=== PATIENT | female | born 1990 | race Two or more races ===

== ENCOUNTER 2016-08-02 13:31 | Emergency (ER) | payer SELFPAY ==
[~2016-08-02] VITALS: Ht 160 cm; Wt 93.0 kg
[~2016-08-02 13:31] MED LIST: CIPR500T94 PO; METR500T PO; PHEN-318 PO; PREN1TAB99 PO
--- NOTE | 2016-08-02 14:18 | EKG ---
[facility] [address] [place] [address] Test Date: 2016-08-02 Test Time: 13:37:51 Pat Name: RIZWANA BERG Department: Room: Gender: F Clinical Pharmacy Technician: : 1990 Requested By: HETAL FRASER Order Number: [id number] Reading MD: Biju Arguello Measurements Intervals [place] Rate: 74 P: 27 MS: 118 QRS: 42 QRSD: 88 T: 14 QT: 372 QTc: 418 Interpretive Statements SINUS RHYTHM Electronically Signed On 08-04-2016 10:35:18 INSTRUCTOR BRIDGE by Biju Arguello
[2016-08-02 14:24] LABS: BASO % 1 % (0-3); EOS % 3 % (0-3); HEMATOCRIT 38.4 % (36.0-47.0); HEMOGLOBIN 12.8 g/dL (12.0-15.5); LYMPH # 2.7 x10^3/uL (1.0-4.8); LYMPH % 36 % (24-48); MEAN CORPUSCULAR HEMOGLOBIN 30 pg (25-35); MEAN CORPUSCULAR HGB CONC 33 g/dL (31-37); MEAN CORPUSCULAR VOLUME 89 fL (79-100); MONO % 8 % (0-9); NEUT % 53 % (31-73); PLATELET COUNT 216 x10^3/uL (140-400); RED BLOOD COUNT 4.34 x10^6/uL (3.50-5.40); RED CELL DISTRIBUTION WIDTH 12.4 % (11.5-14.5); WHITE BLOOD COUNT 7.4 x10^3/uL (4.0-11.0)
[2016-08-02] MEDS ORDERED: ASPIRIN 81 MG TAB.CHEW PO ONE (14:30)
[2016-08-02] MEDS ORDERED: LORAZEPAM 2 MG/ML VIAL IV ONE (14:30)
[2016-08-02] MEDS ORDERED: IV NORMAL SALINE 1000ML BAG 1,000 ML IV SCH (14:30)
[2016-08-02 14:49] LABS: CALCIUM 8.5 mg/dL (8.5-10.1); CREATININE 0.6 mg/dL (0.6-1.0); GFR 119.9; POTASSIUM 3.8 mmol/L (3.5-5.1)
[2016-08-02 14:54] LABS: ALBUMIN 3.5 g/dL (3.4-5.0); DIRECT BILIRUBIN 0.1 mg/dL (0.0-0.2); MAGNESIUM 2.1 mg/dL (1.8-2.4); TOTAL BILIRUBIN 0.2 mg/dL (0.2-1.0); TOTAL PROTEIN 7.1 g/dL (6.4-8.2)
--- NOTE | 2016-08-02 14:55 | PHYS DOC ---
Past Medical History Past Medical History: Other Additional Past Medical Histor: Obesity, currently taking weight loss medication Past Surgical History: No Surgical History Alcohol Use: None Drug Use: None Adult General Chief Complaint Chief Complaint: CHEST PAIN HPI HPI Patient is a 26 year old female who presents with complaint of chest pain. Patient states that her symptoms started 5 days ago. The patient has had constant symptoms during that time. Patient states that the pain is along left side of her chest. Patient also states that she has had left arm numbness but denies weakness. Patient denies any significant past medical history and is currently not on any prescription medications. Patient does admit that she has been taking phentermine for weight loss over the past 2 months. Patient denies any palpitations or nausea. Patient has been taking ibuprofen which helps improve the pain. Patient currently rates her pain as 9 out of 10. Review of Systems Review of Systems Constitutional: Denies fever or chills [] Eyes: Denies change in visual acuity, redness, or eye pain [] HENT: Denies nasal congestion or sore throat [] Respiratory: Denies cough or shortness of breath [] Cardiovascular: Chest pain [] GI: Denies abdominal pain, nausea, vomiting, bloody stools or diarrhea [] : Denies dysuria or hematuria [] Musculoskeletal: Denies back pain or joint pain [] Integument: Denies rash or skin lesions [] Neurologic: Left arm numbness, Denies headache or focal weakness [] Endocrine: Denies polyuria or polydipsia [] Current Medications Current Medications Current Medications Medications (Trade) Dose Ordered Sig/[facility] Start Time Stop Time Status Last Admin Dose Admin Aspirin 324 mg 324 mg 1X ONCE 08/02/16 14:30 08/02/16 14:31 DC 08/02/16 14:45 324 MG Lorazepam (Ativan) 1 mg 1X ONCE 08/02/16 14:30 08/02/16 14:31 DC 08/02/16 14:45 1 MG Sodium Chloride (Iv Sodium Chloride 0.9% 1000ml Bag) 1,000 ml @ 1,000 mls/hr Q1H 08/02/16 14:30 08/02/16 15:29 08/02/16 14:45 1,000 MLS/HR Allergies Allergies Allergies Coded Allergies Type Severity Reaction Last Updated Verified No Known Drug Allergies 08/22/13 No Physical Exam Physical Exam Constitutional: Well developed, well nourished, no acute distress, non-toxic appearance. [] HENT: Normocephalic, atraumatic, bilateral external ears normal, oropharynx moist, no oral exudates, nose normal. [] Eyes: PERRLA, EOMI, conjunctiva normal, no discharge. [] Neck: Normal range of motion, no tenderness, supple, no stridor. [] Cardiovascular:Heart rate regular rhythm, no murmur [] Lungs & Thorax: Bilateral breath sounds clear to auscultation [] Abdomen: Bowel sounds normal, soft, no tenderness, no masses, no pulsatile masses. [] Skin: Warm, dry, no erythema, no rash. [] Back: No tenderness, no CVA tenderness. [] Extremities: No tenderness, no cyanosis, no clubbing, ROM intact, no edema. [] Neurologic: Alert and oriented X 3, normal motor function, normal sensory function, no focal deficits noted. [] Current Patient Data Vital Signs Vital Signs Date Time Temp Pulse Resp B/P Pulse Ox O2 Delivery O2 Flow Rate FiO2 08/02/16 13:35 98.2 77 18 130/71 100 Room Air 98.2 Lab Values Laboratory Tests Test 08/02/16 14:06 White Blood Count 7.4x10^3/uL (4.0-11.0) Red Blood Count 4.34x10^6/uL (3.50-5.40) Hemoglobin 12.8g/dL (12.0-15.5) Hematocrit 38.4% (36.0-47.0) Mean Corpuscular Volume 89fL (79-100) Mean Corpuscular Hemoglobin 30pg (25-35) Mean Corpuscular Hemoglobin Concent 33g/dL (31-37) Red Cell Distribution Width 12.4% (11.5-14.5) Platelet Count 216x10^3/uL (140-400) Neutrophils (%) (Auto) 53% (31-73) Lymphocytes (%) (Auto) 36% (24-48) Monocytes (%) (Auto) 8% (0-9) Eosinophils (%) (Auto) 3% (0-3) Basophils (%) (Auto) 1% (0-3) Neutrophils # (Auto) 4.0x10^3uL (1.8-7.7) Lymphocytes # (Auto) 2.7x10^3/uL (1.0-4.8) Monocytes # (Auto) 0.6x10^3/uL (0.0-1.1) Eosinophils # (Auto) 0.2x10^3/uL (0.0-0.7) Basophils # (Auto) 0.0x10^3/uL (0.0-0.2) D-Dimer ([place]) < 0.27ug/mlFEU (0.00-0.50) Sodium Level 144mmol/L (136-145) Potassium Level 3.8mmol/L (3.5-5.1) Chloride Level 109mmol/L (98-107) H Carbon Dioxide Level 28mmol/L (21-32) Anion Gap 7 (6-14) Blood Urea Nitrogen 9mg/dL (7-20) Creatinine 0.6mg/dL (0.6-1.0) Estimated GFR (Cockcroft-Gault) 119.9 Glucose Level 106mg/dL (70-99) H Calcium Level 8.5mg/dL (8.5-10.1) Magnesium Level 2.1mg/dL (1.8-2.4) Total Bilirubin 0.2mg/dL (0.2-1.0) Direct Bilirubin 0.1mg/dL (0.0-0.2) Aspartate Amino Transferase (AST) 12U/L (15-37) L Alanine Aminotransferase (ALT) 21U/L (14-59) Alkaline Phosphatase 70U/L (46-116) Creatine Kinase 63U/L (26-192) Creatine Kinase MB (Mass) < 0.5ng/mL (0.0-3.6) Creatine Kinase MB Relative Index 0.8% (0-4) Troponin I Quantitative < 0.017ng/mL (0.000-0.055) VA-Vbw-A-Type Natriuretic Peptide 87pg/mL (0-124) Total Protein 7.1g/dL (6.4-8.2) Albumin 3.5g/dL (3.4-5.0) Laboratory Tests 08/02/16 14:06 Laboratory Tests 08/02/16 14:06 EKG EKG Interpreted by me: Heart rate 74, sinus rhythm, normal intervals, normal axis, no acute ST/T-wave abnormalities present [] Radiology/Procedures Radiology/Procedures [facility] [address] [place] [address] IMAGING REPORT Signed PATIENT: RIZWANA BERG ACCOUNT: [id number] : 1990 LOCATION: ER AGE: 26 SEX: F EXAM STATUS: REG ER ORD. PHYSICIAN: HETAL FRASER MD REASON: chest pain PROCEDURE: CHEST PA & LATERAL EXAM: Chest, 2 views. HISTORY: Chest pain. COMPARISON: None. FINDINGS: Frontal and lateral views of the chest are obtained. There is no infiltrate, effusion or pneumothorax. The heart is normal in size. IMPRESSION: No acute pulmonary finding. DICTATED and SIGNED BY: ALDAIR MOON MD DATE: 08/02/16 1458 CC: HETAL FRASER MD; NO PCP ~ [] Course & Med Decision Making Course & Med Decision Making Pertinent Labs and Imaging studies reviewed. (See chart for details) [] Dragon Disclaimer Dragon Disclaimer This electronic medical record was generated, in whole or in part, using a voice recognition dictation system. Departure Departure Impression: Primary Impression: Chest pain Disposition: 01 HOME, SELF-CARE Condition: IMPROVED Referrals: NO PCP (PCP) Patient Instructions: Chest Pain (Nonspecific) Additional Instructions: Follow-up with your primary doctor in the next 3 days. Return to emergency department for any worsening symptoms. Scripts Ibuprofen 600 Mg [id number] Mg PO PRN Q6HRS PRN INFLAMMATION #30 TAB Prov:HETAL FRASER MD 08/02/16 Problem Qualifiers Primary Impression: Chest pain Chest pain type: unspecified Qualified Code: R07.9 - Chest pain, unspecified HETAL FRASER MD Aug 02, 2016 14:55
[2016-08-02 14:57] LABS: CREATINE KINASE 63 U/L (26-192)
[2016-08-02 14:58] LABS: CKMB INDEX 0.8 % (0-4); CKMB MASS < 0.5 ng/mL (0.0-3.6)
--- NOTE | 2016-08-02 15:00 | RAD ---
EXAM: Chest, 2 views. HISTORY: Chest pain. COMPARISON: None. FINDINGS: Frontal and lateral views of the chest are obtained. There is no infiltrate, effusion or pneumothorax. The heart is normal in size. IMPRESSION: No acute pulmonary finding.
[2016-08-02 15:08] VITALS: BP 113/65
[2016-08-02] MEDS ORDERED: IBUP-1007 PO (15:09)
[2016-08-02 15:14] LABS: NEG OBC UR NEG; POS OBC UR POS
[2016-08-02 15:19] LABS: BILIRUBIN,URINE NEGATIVE (NEG); GLUCOSE,URINE NEGATIVE (NEG); NITRITE,URINE NEGATIVE (NEG); PROTEIN,URINE NEGATIVE (NEG-TRACE)
[2016-08-02 15:20] LABS: BACTERIA,URINE FEW /HPF (0-FEW); RBC,URINE OCC /HPF (0-2); SQUAMOUS EPITHELIAL CELL,UR MOD /LPF
[2016-08-02 15:22] LABS: BARBITURATES NEG (NEG); BENZODIAZEPINES NEG (NEG); CANNABINOIDS NEG (NEG); COCAINE NEG (NEG); METHADONE NEG (NEG); OPIATES NEG (NEG); PHENCYCLIDINE NEG (NEG)
[2016-08-02 15:23] LABS: ETHANOL, URINE NEG (NEG)
== END 2016-08-02 15:40 | disposition home or self-care (01) ==
LOC: ER 13:31
DX: R07.89 Other chest pain (principal); E66.9 Obesity, unspecified; Z68.36 Body mass index [BMI] 36.0-36.9, adult
CPT/HCPCS: 36415; 71020; 80048; 80076; 81001; 81025; 82553; 83735; 83880; 84484; 85027; 85379; 87086; 93005; 96361; 96374; 99285; G0481; J2060; J7030

== ENCOUNTER 2017-06-28 21:29 | Emergency (ER) | payer SELFPAY ==
[2017-06-28 21:56] LABS: BASO # 0.1 x10^3/uL (0.0-0.2); BASO % 0 % (0-3); EOS % 1 % (0-3); HEMATOCRIT 41.3 % (36.0-47.0); HEMOGLOBIN 13.8 g/dL (12.0-15.5); LYMPH # 3.6 x10^3/uL (1.0-4.8); LYMPH % 21 % (24-48); MEAN CORPUSCULAR HEMOGLOBIN 30 pg (25-35); MEAN CORPUSCULAR HGB CONC 33 g/dL (31-37); MEAN CORPUSCULAR VOLUME 89 fL (79-100); MONO % 6 % (0-9); NEUT % 72 % (31-73); PLATELET COUNT 261 x10^3/uL (140-400); RED BLOOD COUNT 4.67 x10^6/uL (3.50-5.40); RED CELL DISTRIBUTION WIDTH 12.9 % (11.5-14.5); WHITE BLOOD COUNT 17.5 x10^3/uL (4.0-11.0)
[2017-06-28 21:57] LABS: ADD MAN DIFF? YES
[2017-06-28 22:06] LABS: ANION GAP 9 (6-14); BLOOD UREA NITROGEN 17 mg/dL (7-20); BUN/CREATININE RATIO 21 (6-20); CALCIUM 8.6 mg/dL (8.5-10.1); CARBON DIOXIDE 28 mmol/L (21-32); CHLORIDE 104 mmol/L (98-107); CREATININE 0.8 mg/dL (0.6-1.0); GFR 85.4; GLUCOSE 95 mg/dL (70-99); POTASSIUM 3.7 mmol/L (3.5-5.1); SODIUM 141 mmol/L (136-145)
[2017-06-28 22:12] LABS: ALBUMIN 3.9 g/dL (3.4-5.0); ALK PHOS 85 U/L (46-116); ALT (SGPT) 26 U/L (14-59); AST (SGOT) 15 U/L (15-37); TOTAL BILIRUBIN 0.4 mg/dL (0.2-1.0); TOTAL PROTEIN 7.8 g/dL (6.4-8.2)
[2017-06-28 22:13] LABS: TROPONINI < 0.017 ng/mL (0.000-0.055)
[2017-06-28 22:22] LABS: CKMB MASS < 0.5 ng/mL (0.0-3.6); CREATINE KINASE 47 U/L (26-192)
[2017-06-28 22:22] LABS: NT-PRO BNP 24 pg/mL (0-124)
[2017-06-28 22:24] LABS: % EOS 3 % (0-5)
[2017-06-28 22:25] LABS: PLT ESTIMATE ADEQUATE (ADEQUATE)
[2017-06-28] MEDS: KETOROLAC 30 MG/ML INJ. IV (22:28)
[2017-06-28] MEDS: IV NORMAL SALINE 1000ML BAG 1,000 ML IV (22:29)
[2017-06-28 22:43] LABS: URINE HCG POC HCG NEGATIVE (Negative)
[2017-06-28 22:44] LABS: BILIRUBIN,URINE NEGATIVE (NEG); GLUCOSE,URINE NEGATIVE (NEG); NITRITE,URINE NEGATIVE (NEG); PROTEIN,URINE NEGATIVE (NEG-TRACE)
[2017-06-28 22:49] LABS: BACTERIA,URINE MANY /HPF (0-FEW); RBC,URINE OCC /HPF (0-2); SQUAMOUS EPITHELIAL CELL,UR MANY /LPF; WBC,URINE 20-40 /HPF (0-4)
== END 2017-06-28 23:19 | disposition home or self-care (01) ==
LOC: ER 21:29
DX: J18.9 Pneumonia, unspecified organism (principal); R09.1 Pleurisy; E66.9 Obesity, unspecified; Z68.36 Body mass index [BMI] 36.0-36.9, adult
CPT/HCPCS: 36415; 71020; 80053; 81001; 81025; 82553; 83735; 83880; 84484; 85007; 85025; 85379; 87086; 93005; 96361; 96374; 99285-25; J1885; J7030

== ENCOUNTER 2018-07-29 09:19 | Emergency (ER) | payer SELFPAY ==
[~2018-07-29] VITALS: Ht 157.5 cm; Wt 93.0 kg
[~2018-07-29 09:19] MED LIST changes: +AZIT250T6 PO; +IBUP-1007 PO
[2018-07-29 09:42] VITALS: BP 141/77
[2018-07-29 09:48] LABS: BILIRUBIN,URINE NEGATIVE (NEG); CLARITY,URINE CLEAR; COLOR,URINE ORANGE; NITRITE,URINE POSITIVE (NEG); PH,URINE 6.5; PROTEIN,URINE NEGATIVE (NEG-TRACE)
[2018-07-29 10:02] LABS: RBC,URINE OCC /HPF (0-2); SQUAMOUS EPITHELIAL CELL,UR MANY /LPF
[2018-07-29 10:04] LABS: BACTERIA,URINE MANY /HPF (0-FEW)
--- NOTE | 2018-07-29 10:23 | PHYS DOC ---
Past Medical History Past Medical History: No Pertinent History, Other Additional Past Medical Histor: Obesity, currently taking weight loss medication (JACOB AMYORGA APRN) Past Surgical History: No Surgical History (JACOB MAYORGA APRN) Alcohol Use: None Drug Use: None (JACOB MAYORGA APRN) Adult General Chief Complaint Chief Complaint: PAIN ON URINATION [facility] HPI Patient is a 28 year old female who presents complaining of urgency frequency and dysuria for 2 weeks. Patient denies any fever nausea vomiting or flank pain. (JACOB MAYORGA APRN) Review of Systems Review of Systems Constitutional: Denies fever or chills [] Eyes: Denies change in visual acuity, redness, or eye pain [] HENT: Denies nasal congestion or sore throat [] Respiratory: Denies cough or shortness of breath [] Cardiovascular: No additional information not addressed in HPI [] GI: Denies abdominal pain, nausea, vomiting, bloody stools or diarrhea [] : Reports urgency, frequency, dysuria, denies hematuria [] Musculoskeletal: Denies back pain or joint pain [] Integument: Denies rash or skin lesions [] Neurologic: Denies headache, focal weakness or sensory changes [] All other systems were reviewed and found to be within normal limits, except as documented in this note. (JACOB MAYORGA APRN) Allergies Allergies Allergies Coded Allergies Type Severity Reaction Last Updated Verified No Known Drug Allergies 08/22/13 No (MOE RAINES MD) Physical Exam Physical Exam Constitutional: Well developed, well nourished, no acute distress, non-toxic appearance. [] HENT: Normocephalic, atraumatic, bilateral external ears normal, oropharynx moist, no oral exudates, nose normal. [] Eyes: PERRLA, EOMI, conjunctiva normal, no discharge. [] Neck: Normal range of motion, no tenderness, supple, no stridor. [] Cardiovascular:Heart rate regular rhythm, no murmur [] Lungs & Thorax: Bilateral breath sounds clear to auscultation [] Abdomen: Bowel sounds normal, soft, no tenderness, no masses, no pulsatile masses. [] Skin: Warm, dry, no erythema, no rash. [] Back: No tenderness, no CVA tenderness. [] Extremities: No tenderness, no cyanosis, no clubbing, ROM intact, no edema. [] Neurologic: Alert and oriented X 3, normal motor function, normal sensory function, no focal deficits noted. [] Psychologic: Affect normal, judgement normal, mood normal. [] (JACOB MAYORGA APRN) Current Patient Data Vital Signs Vital Signs Date Time Temp Pulse Resp B/P (MAP) Pulse Ox O2 Delivery O2 Flow Rate FiO2 07/29/18 09:42 98.4 79 18 141/77 (98) 99 Room Air 98.4 (MOE RAINES MD) Lab Values Laboratory Tests Test 07/29/18 09:27 Urine Collection Type Unknown Urine Color Saline Urine Clarity Clear Urine pH 6.5 Urine Specific [place] 1.025 Urine Protein Negative mg/dL (NEG-TRACE) Urine Glucose (UA) Negative mg/dL (NEG) Urine Ketones (Stick) Negative mg/dL (NEG) Urine Blood Negative (NEG) Urine Nitrite Positive (NEG) Urine Bilirubin Negative (NEG) Urine Urobilinogen Dipstick 1.0 mg/dL (0.2 mg/dL) Urine Leukocyte Esterase Small (NEG) Urine RBC Occ /HPF (0-2) Urine WBC 5-10 /HPF (0-4) Urine Squamous Epithelial Cells Many /LPF Urine Bacteria Many /HPF (0-FEW) Urine Mucus Marked /LPF (MOE RAINES MD) EKG EKG [] (JACOB MAYORGA APRN) Radiology/Procedures Radiology/Procedures [] (JACOB MAYORGA APRN) Course & Med Decision Making Course & Med Decision Making Pertinent Labs and Imaging studies reviewed. (See chart for details) + for UTI. D/c with cephalexin, and Pyridium. Instructed to push fluids. Follow- up with PCP in 1-2 weeks as needed. (JACOB MAYORGA APRN) Dragon Disclaimer Dragon Disclaimer This electronic medical record was generated, in whole or in part, using a voice recognition dictation system. (JACOB MAYORGA APRN) Departure Departure Impression: Primary Impression: UTI (urinary tract infection) Disposition: 01 HOME, SELF-CARE Condition: STABLE Referrals: NO PCP (PCP) follow with our doctor in 1 week Patient Instructions: Urinary Tract Infection Additional Instructions: You have urinary tract infection, we will put you on antibiotics, ensure you complete them. You can take Tylenol Motrin for pain or fever. He also have Pyridium, you can take it for pain. Follow-up with your doctor in 1-2 weeks. Scripts Phenazopyridine Hcl (PYRIDIUM) 100 Mg Tablet 100 MG PO TID, #9 TAB Prov: JACOB MAYORGA APRN 07/29/18 Cephalexin (CEPHALEXIN) 500 Mg Tablet 1 TAB PO BID, #14 TAB Prov: JACOB MAYORGA APRN 07/29/18 Problem Qualifiers Primary Impression: UTI (urinary tract infection) Urinary tract infection type: site unspecified Hematuria presence: without hematuria Qualified Codes: N39.0 - Urinary tract infection, site not specified JACOB MAYORGA APRN Jul 29, 2018 10:23 MOE RAINES MD Jul 29, 2018 14:27
[2018-07-29] MEDS ORDERED: PHEN100T82 PO (10:26)
[2018-07-29] MEDS ORDERED: CEPH500T PO (10:26)
== END 2018-07-29 10:31 | disposition home or self-care (01) ==
LOC: ER 09:19
DX: N39.0 Urinary tract infection, site not specified (principal); E66.9 Obesity, unspecified; Z68.37 Body mass index [BMI] 37.0-37.9, adult
CPT/HCPCS: 81001; 99283

== ENCOUNTER 2019-07-20 19:44 | Emergency (ER) | payer SELFPAY ==
[~2019-07-20] VITALS: Ht 162.6 cm; Wt 109.3 kg
[~2019-07-20 19:44] MED LIST changes: +CEPH500T PO; +PHEN100T82 PO
[2019-07-20 20:05] VITALS: BP 129/75
[2019-07-20 21:03] LABS: BILIRUBIN,URINE NEGATIVE (NEG); CLARITY,URINE CLEAR; COLOR,URINE YELLOW; NITRITE,URINE NEGATIVE (NEG); PROTEIN,URINE NEGATIVE (NEG-TRACE)
[2019-07-20 21:07] LABS: SQUAMOUS EPITHELIAL CELL,UR MANY /LPF
[2019-07-20 21:08] LABS: AMORPHOUS SEDIMENT,UR PRESENT /HPF; BACTERIA,URINE MANY /HPF (0-FEW); RBC,URINE 0 /HPF (0-2)
[2019-07-20] MEDS ORDERED: GUAI-108 PO (21:28)
--- NOTE | 2019-07-20 21:28 | PHYS DOC ---
Past Medical History Past Medical History: Other Additional Past Medical Histor: Obesity, currently taking weight loss medication Past Surgical History: No Surgical History Alcohol Use: None Drug Use: None Adult General Chief Complaint Chief Complaint: COUGH HPI HPI Patient is a 29 year old female who presents with 6 months and for the last week she has had a nonproductive cough. She states that when she coughs she gets a pressure type pain in the left chest that radiates through to her back and when she takes deep breath. She states that when the pain hits she becomes short of air and then it goes away. Patient also has urinary burning for the last week. Patient states she had the same pain last year and it was bronchitis or pneumonia. Patient was upstairs to labor and delivery before she came back d own to the emergency room. Her and the baby were checked out and the baby is good as reported to nurse. Review of Systems Review of Systems Respiratory: cough or shortness of breath [] Cardiovascular: Left chest with cough or deep breath All other systems were reviewed and found to be within normal limits, except as documented in this note. Allergies Allergies Allergies Coded Allergies Type Severity Reaction Last Updated Verified No Known Drug Allergies 08/22/13 No Physical Exam Physical Exam Constitutional: Well developed, well nourished, no acute distress, non-toxic appearance. [] HENT: Normocephalic, atraumatic, bilateral external ears normal, oropharynx moist, no oral exudates, nose normal. [] Eyes: PERRLA, EOMI, conjunctiva normal, no discharge. [] Neck: Normal range of motion, no tenderness, supple, no stridor. [] Cardiovascular:Heart rate regular rhythm, no murmur [] Lungs & Thorax: Bilateral breath sounds clear to auscultation [] Abdomen: Bowel sounds normal, soft, no tenderness, no masses, no pulsatile masses. [] Skin: Warm, dry, no erythema, no rash. [] Back: No tenderness, no CVA tenderness. [] Extremities: No tenderness, no cyanosis, no clubbing, ROM intact, no edema. [] Neurologic: Alert and oriented X 3, normal motor function, normal sensory function, no focal deficits noted. [] Psychologic: Affect normal, judgement normal, mood normal. Normal Physical Exam[] Current Patient Data Vital Signs Vital Signs Date Time Temp Pulse Resp B/P (MAP) Pulse Ox O2 Delivery O2 Flow Rate FiO2 07/20/19 20:05 98.5 68 18 129/75 (93) 99 Room Air 98.5 Lab Values Laboratory Tests Test 07/20/19 19:05 Urine Collection Type Unknown Urine Color Yellow Urine Clarity Clear Urine pH 6.0 Urine Specific [place] 1.025 Urine Protein Negative mg/dL (NEG-TRACE) Urine Glucose (UA) Negative mg/dL (NEG) Urine Ketones (Stick) Negative mg/dL (NEG) Urine Blood Negative (NEG) Urine Nitrite Negative (NEG) Urine Bilirubin Negative (NEG) Urine Urobilinogen Dipstick 1.0 mg/dL (0.2 mg/dL) Urine Leukocyte Esterase Small (NEG) Urine RBC 0 /HPF (0-2) Urine WBC 5-10 /HPF (0-4) Urine Squamous Epithelial Cells Many /LPF Urine Amorphous Sediment Present /HPF Urine Bacteria Many /HPF (0-FEW) Urine Mucus Mod /LPF EKG EKG NSR[] Interpretation Time: [address] Edmondson Radiology/Procedures Radiology/Procedures [] Course & Med Decision Making Course & Med Decision Making Vital signs within normal limits. No unilateral calf swelling and no calf tenderness. Lungs are clear to auscultation all lobes. PERC negative. Patient denies nausea, vomiting, abdominal pain, vaginal bleeding, abnormal vaginal discharge, chest pain at rest, shortness of breath at rest or with exertion, dizziness, headache, visual changes, numbness or tingling, weakness, headache, fever, nasal congestion, sore throat, ear pain, body aches. CVA tenderness negative. Afebrile. Physical exam is normal. I have spoken to Dr. Edmondson about my exam findings and the patient care plan. He states to treat the patient with Mucinex and she'll follow up with her OB care provider. Patient has her next OB appointment on August 01, 2019. Patient goes to a clinic of [facility] per the patient.[] Dragon Disclaimer Dragon Disclaimer This electronic medical record was generated, in whole or in part, using a voice recognition dictation system. Departure Departure Impression: Primary Impression: UTI (urinary tract infection) Additional Impressions: Cough Chest pain Disposition: HOME, SELF-CARE Condition: STABLE Referrals: NO PCP (PCP) Patient Instructions: Chest Pain (Nonspecific), [id number], Cough, Adult, [id number], - Urinary Tract Infection Additional Instructions: Follow-up with your OB care provider as soon as possible. Take medications as prescribed. You can also use cough drops. Use Tylenol for pain. Scripts Guaifenesin/Dextromethorphan (MUCINEX DM ER 600-30 MG TABLET) 1 Each Tab.er.12h 1 TAB PO PRN BID PRN for cough and congestion for 10 Days, #20 TAB 0 Refills Prov: LUH CONKLIN APRN 07/20/19 Problem Qualifiers Primary Impression: UTI (urinary tract infection) Urinary tract infection type: site unspecified Hematuria presence: without hematuria Qualified Codes: N39.0 - Urinary tract infection, site not specified Additional Impressions: Chest pain Chest pain type: unspecified Qualified Codes: R07.9 - Chest pain, unspecified LUH CONKLIN APRN Jul 20, 2019 21:28
--- NOTE | 2019-07-21 07:26 | EKG ---
[facility] [address] [place] [address] Test Date: 2019-07-20 Test Time: 21:12:38 Pat Name: RIZWANA BERG Department: Room: Gender: F School Commissioner: : 1990 Requested By: LUH CONKLIN Order Number: [id number] Reading MD: Measurements Intervals [place] Rate: 68 P: 56 VA: 148 QRS: 62 QRSD: 86 T: 15 QT: 382 QTc: 410 Interpretive Statements SINUS RHYTHM NORMAL ECG No previous ECG available for comparison
== END 2019-07-20 21:46 | disposition home or self-care (01) ==
LOC: ER 19:44
DX: O23.42 Unspecified infection of urinary tract in pregnancy, second trimester (principal); R05 Cough; R07.89 Other chest pain; E66.9 Obesity, unspecified; Z68.41 Body mass index [BMI] 40.0-44.9, adult; Z79.899 Other long term (current) drug therapy
CPT/HCPCS: 81001; 87086; 93005; 99285

== ENCOUNTER 2020-09-07 19:56 | Emergency (ER) | payer SELFPAY ==
[~2020-09-07] VITALS: Ht 162.6 cm; Wt 102.7 kg
[~2020-09-07 19:56] MED LIST changes: +GUAI-108 PO
[2020-09-07 20:13] LABS: BILIRUBIN,URINE NEGATIVE (NEG); CLARITY,URINE CLEAR; COLOR,URINE ORANGE; NITRITE,URINE POSITIVE (NEG); PH,URINE 5.5 (<5.0-8.0); PROTEIN,URINE NEGATIVE (NEG-TRACE); UROBILINOGEN,URINE 0.2 mg/dL (0.2 mg/dL)
[2020-09-07 20:21] LABS: BACTERIA,URINE 0 /HPF (0-FEW); RBC,URINE RARE /HPF (0-2)
[2020-09-07 20:22] LABS: U PREG PATIENT NEGATIVE (NEG)
[2020-09-07] MEDS ORDERED: CEPH500C PO (20:33)
--- NOTE | 2020-09-07 20:33 | ED.ADGEN ---
Past Medical History Past Medical History: Other Additional Past Medical Histor: Obesity, currently taking weight loss medication Past Surgical History: No Surgical History Smoking Status: Never Smoker Alcohol Use: None Drug Use: None General Adult EDM: Chief Complaint: PAIN ON URINATION HPI: HPI: Patient is a 30 year old female who presents emergency department with complaints of pain with urination for the last 4 days. Patient reports that her symptoms feel like they did when she had a previous urinary tract infection. She denies any abdominal pain, nausea, vomiting, diarrhea, back pain, fever, body aches, fatigue, irregular vaginal discharge, or vaginal bleeding. Patient reports she has been taking Azo at home with no resolution of her symptoms. She currently rates her discomfort a 6 out of 10 on the pain scale describes it as a burning sensation. She denies any alleviating factors, the pain is worse with urination. Review of Systems: Review of Systems: Complete ROS is negative unless otherwise noted in HPI. Allergies: Allergies: Allergies Coded Allergies Type Severity Reaction Last Updated Verified No Known Drug Allergies 08/22/13 No Physical Exam: PE: See Above Constitutional: Well developed, well nourished, no acute distress, non-toxic appearance, obese. [] HENT: Normocephalic, atraumatic, bilateral external ears normal, nose normal. [] Eyes: PERRLA, EOMI, conjunctiva normal, no discharge. [] Neck: Normal range of motion, no stridor. [] Cardiovascular:Heart rate regular rhythm Lungs & Thorax: Respirations even and unlabored, no retractions, no respiratory distress Abdomen: soft, no tenderness Skin: Warm, dry, no erythema, no rash. [] Extremities: No cyanosis, ROM intact, no edema. [] Neurologic: Alert and oriented X 3, no focal deficits noted. [] Psychologic: Affect normal, judgement normal, mood normal. [] Current Patient Data: Labs: Laboratory Tests Test 09/07/20 19:59 Urine Collection Type Unknown Urine Color [place] Urine Clarity Clear Urine pH 5.5 (<5.0-8.0) Urine Specific [place] 1.015 (1.000-1.030) Urine Protein Negative mg/dL (NEG-TRACE) Urine Glucose (UA) Negative mg/dL (NEG) Urine Ketones (Stick) Negative mg/dL (NEG) Urine Blood Negative (NEG) Urine Nitrite Positive (NEG) Urine Bilirubin Negative (NEG) Urine Urobilinogen Dipstick 0.2 mg/dL (0.2 mg/dL) Urine Leukocyte Esterase Small (NEG) Urine RBC Rare /HPF (0-2) Urine WBC 1-4 /HPF (0-4) Urine Squamous Epithelial Cells Few /LPF Urine Bacteria 0 /HPF (0-FEW) Urine Test Negative (NEG) Vital Signs: Vital Signs Date Time Temp Pulse Resp B/P (MAP) Pulse Ox O2 Delivery O2 Flow Rate FiO2 09/07/20 20:40 82 18 97 09/07/20 20:00 97.8 143/80 (101) Room Air 97.8 EKG: EKG: [] Heart Score: C/O Chest Pain: No Risk Factors: Risk Factors: DM, Current or recent (<one month) smoker, HTN, HLP, family history of CAD, obesity. Risk Scores: Score 0 - 3: 2.5% MACE over next 6 weeks - Discharge Home Score 4 - 6: 20.3% MACE over next 6 weeks - Admit for Clinical Observation Score 7 - 10: 72.7% MACE over next 6 weeks - Early Invasive Strategies Radiology/Procedures: Radiology/Procedures: [] Course & Med Decision Making: Course & Med Decision Making Pertinent Labs and Imaging studies reviewed. (See chart for details) 30-year-old female presents emergency department with complaints of dysuria. Urine is positive for nitrates, will treat for urinary tract infection with Keflex. Patient encouraged to increase clear fluids and avoid bladder irritants continue taking Azo as needed. Follow-up with your primary care doctor next week, return to the ER if symptoms worsen. Patient verbalized an understanding of home care, medications, follow-up, and return to ED instructions and was in agreement with the plan of care. [] Dragon Disclaimer: Dragon Disclaimer: This electronic medical record was generated, in whole or in part, using a voice recognition dictation system. Departure Departure Impression: Primary Impression: UTI (urinary tract infection) Disposition: 01 DC HOME SELF CARE/HOMELESS Condition: STABLE Referrals: NO PCP (PCP) Patient Instructions: Urinary Tract Infection, [id number] Additional Instructions: Fill prescription(s) and take as directed. Avoid bladder irritants such as caffeine, carbonation, and spicy foods. Increase clear fluids. Follow up with your primary care doctor in 1-2 days, return to the ER if symptoms worsen or fever develops. Scripts Cephalexin (CEPHALEXIN) 500 Mg Capsule 1 CAP PO BID for 7 Days, #14 CAP 0 Refills Prov: TIM IRVIN APRN 09/07/20 Problem Qualifiers Primary Impression: UTI (urinary tract infection) Urinary tract infection type: site unspecified Hematuria presence: without hematuria Qualified Codes: N39.0 - Urinary tract infection, site not specified TIM IRVIN APRN Sep 07, 2020 20:33
[2020-09-07 20:40] VITALS: BP 148/92
== END 2020-09-07 20:40 | disposition home or self-care (01) ==
LOC: ER 19:56
DX: N39.0 Urinary tract infection, site not specified (principal)
CPT/HCPCS: 81001; 81025; 87086; 99283